=== PATIENT | male | born 1985 | race Caucasian/White ===

== ENCOUNTER 2017-06-09 16:53 | Observation (INO) | payer OTHER ==
[~2017-06-09] VITALS: Ht 190.5 cm; Wt 112.0 kg
--- NOTE | 2017-06-09 17:06 | EMERGENCY ROOM VISIT NOTE ---
History Report prepared by Eduin: Maryan Valera Under the Supervision of: Dr. Antolin Cartwright D.O. First contact with patient: 16:53 Stated Complaint: CHEST PAIN History of Present Illness The patient is a 32 year old male who presents to the Emergency Room with complaints of chest pain beginning at 1000 this morning. The patient rates his pain at a 7/10. He also reports that the pain radiates to his lower back. The patient states that the pain is exacerbated with movement and taking a deep breath. The patient states that his grandfather from a heart attack and his father has blood clots. The patient states that he was never tested for factor 5. Per EMS, the patient was anxious and diaphoretic upon arrival. Per EMS , the patient has pain when his chest is pushed on. Per EMS, the patient also had tingling in his right arm. Per EMS, the patient was give aspirin, 3 nitroglycerin, 100mg of fentanyl, and 4mg of Zofran en route. The patient reports that he drinks occasionally but does not smoke. The patient states that he used to chew tobacco but that he quit. He reports that he does not take any medications daily and reports that he has never had surgery. Source of History: patient, EMS Onset: 1000 this morning Position: chest Symptom Intensity: rated at a 7/10 Quality: other (pain ) Modifying Factors (Worsening): breathing, movement Associated Symptoms: + diaphoresis Note: additional symptoms: lower back pain, tinging in his right arm Review of Systems See HPI for pertinent positives & negatives. A total of 10 systems reviewed and were otherwise negative. Past Medical & Surgical Medical Problems: (1) No significant medical problems Family History Blood clots FH: heart attack Social History Smoking Status: Never Smoker Smokeless Tobacco Use: No Alcohol Use: occasionally Drug Use: none Marital Status: in relationship Occupation Status: employed Current/Historical Medications No Active Prescriptions or Reported Meds Allergies Coded Allergies: No Known Allergies (Unverified , 06/11/11) Physical Exam Vital Signs Date Time Temp Pulse Resp B/P (MAP) Pulse Ox O2 Delivery O2 Flow Rate FiO2 06/09/17 20:00 45 15 132/74 97 06/09/17 18:42 51 18 102/61 97 Room Air 06/09/17 18:31 50 06/09/17 17:46 56 18 111/64 98 Room Air 06/09/17 17:06 36.8 73 18 131/73 99 Room Air 06/09/17 17:06 98 Room Air 06/09/17 17:05 63 06/09/17 17:00 98 Room Air Physical Exam GENERAL: Patient is awake, alert, anxious, and uncomfortable appearing. EYES: The conjunctivae are clear. The pupils are round and reactive. EARS, NOSE, MOUTH AND THROAT: The nose is without any evidence of any deformity. Mucous membranes are moist tongue is midline NECK: The neck is nontender and supple. RESPIRATORY: Normal respiratory effort is noted there is no evidence of wheezing rhonchi or rales CARDIOVASCULAR: Regular rate and rhythm noted there no murmurs rubs or gallops normal S1 normal S2 GASTROINTESTINAL: The abdomen is soft and mildly distended. Bowel sounds are present in all quadrants. There is left upper quadrant tenderness. No rebound or guarding. PELVIS: The Pelvis is stable. No tenderness to palpation is noted. BACK: No step-off noted range of motion in flexion extension as well as rotation no signs of muscle spasm noted. Left CVA tenderness to percussion. Mild midline tenderness to percussion. Range of motion is intact. MUSCULOSKELETAL/EXTREMITIES: There is no evidence of gross deformity full range of motion is noted in the hips and shoulders SKIN: There is no obvious evidence of any rash. There are no petechiae, pallor or cyanosis noted. NEUROLOGIC: Patient is awake alert and oriented x3 Medical Decision & Procedures ER Provider Diagnostic Interpretation: Radiology results as stated below per my review and radiologist interpretation: SINGLE VIEW CHEST CLINICAL HISTORY: Dyspnea. FINDINGS: An AP, portable, upright chest radiograph is compared to study dated 09/11/2013. The examination is degraded by portable technique and patient rotation. The heart is top normal for projection. The lungs and pleural spaces are clear. No pneumothorax is seen. The bony thorax is grossly intact. IMPRESSION: No acute cardiopulmonary abnormality. Electronically signed by: Oscar Lopez M.D. 06/09/2017 5:09 PM Dictated Date/Time: 06/09/2017 5:08 PM ABD/PELVIS NO IV OR ORAL CONT CLINICAL HISTORY: 32 years-old Male presenting with left flank pain. TECHNIQUE: Multidetector CT of the abdomen and pelvis was performed without the use of intravenous contrast. IV contrast: None. A dose lowering technique was used consistent with the principles of ALARA (as low as reasonably achievable). COMPARISON: None. CT DOSE (mGy.cm): The estimated cumulative dose is 979.90 mGy.cm. FINDINGS: Desk Clerks Supervisor topogram: Unremarkable. Lung bases: Minimal basilar opacities, likely atelectasis. Normal heart size. No pericardial or pleural effusion. Liver: Normal morphology. Density consistent with hepatic steatosis. Biliary: No gross biliary ductal dilatation allowing for noncontrast technique. Normal gallbladder. Pancreas: Normal noncontrast appearance. Spleen: Normal noncontrast appearance. Adrenal glands: Normal noncontrast appearance. Kidneys and ureters: Normal noncontrast appearance. No nephrolithiasis. No hydronephrosis. Normal ureters. Bladder: Normal. Pelvic organs: Prostate and seminal vesicles normal. Bowel: Normal appendix. No bowel obstruction. Local infiltration of fat anterior to the sigmoid colon (series 3 image 394). Colon is normal. Peritoneal cavity: No free fluid or intraperitoneal gas. Lymph nodes: No gross lymphadenopathy allowing for noncontrast technique. Vasculature: Normal noncontrast appearance. Abdominal wall: Small fat-containing umbilical hernia. Musculoskeletal: Normal. IMPRESSION: 1. Findings consistent with epiploic appendagitis of the sigmoid colon. No other evidence of acute intra-abdominal pathology. Electronically signed by: Israel Gerard M.D. 06/09/2017 5:51 PM Dictated Date/Time: 06/09/2017 5:47 PM Laboratory Results Test 06/09/17 16:30 06/09/17 17:00 06/09/17 17:02 06/09/17 19:32 Immature Granulocyte % (Auto) 0.1 % White Blood Count 7.04 K/uL (4.8-10.8) Red Blood Count 4.80 M/uL (4.7-6.1) Hemoglobin 14.8 g/dL (14.0-18.0) Hematocrit 43.0 % (42-52) Mean Corpuscular Volume 89.6 fL (80-100) Mean Corpuscular Hemoglobin 30.8 pg (25-34) Mean Corpuscular Hemoglobin Concent 34.4 g/dl (32-36) Platelet Count 287 K/uL (130-400) Mean Platelet Volume 10.2 fL (7.4-10.4) Neutrophils (%) (Auto) 64.1 % Lymphocytes (%) (Auto) 27.4 % Monocytes (%) (Auto) 5.7 % Eosinophils (%) (Auto) 2.4 % Basophils (%) (Auto) 0.3 % Neutrophils # (Auto) 4.51 K/uL (1.4-6.5) Lymphocytes # (Auto) 1.93 K/uL (1.2-3.4) Monocytes # (Auto) 0.40 K/uL (0.11-0.59) Eosinophils # (Auto) 0.17 K/uL (0-0.5) Basophils # (Auto) 0.02 K/uL (0-0.2) Immature Granulocyte # (Auto) 0.01 K/uL (0.00-0.02) Prothrombin Time 10.8 SECONDS (9.0-12.0) Prothromb Time International Ratio 1.0 (0.9-1.1) Activated Partial Thromboplast Time 24.7 SECONDS (21.0-31.0) Partial Thromboplastin Ratio 1.0 Magnesium Level 2.1 mg/dl (1.8-2.4) Total Bilirubin 0.6 mg/dl (0.2-1) Aspartate Amino Transf (AST/SGOT) 18 U/L (15-37) Alanine Aminotransferase (ALT/SGPT) 41 U/L (12-78) Alkaline Phosphatase 64 U/L (45-117) Total Creatine Kinase 115 U/L (39-308) Creatine Kinase MB < 0.5 ng/ml (0.5-3.6) Creatine Kinase MB Ratio (0-3.0) Total Protein 7.6 gm/dl (6.4-8.2) Albumin 3.9 gm/dl (3.4-5.0) Globulin 3.7 gm/dl (2.5-4.0) Albumin/Globulin Ratio 1.1 (0.9-2) Thyroid Stimulating Hormone (TSH) 1.090 uIu/ml (0.300-4.500) Free Thyroxine 0.97 ng/dl (0.80-1.60) Lyme Disease IgG Antibody NEG (NEG) Lyme Disease IgM Antibody NEG (NEG) Bedside D-Dimer 163 ng/mlFEU (0-450) Bedside Hemoglobin 13.9 g/dl (14.0-18.0) Bedside Hematocrit 41 % (42-52) Bedside Sodium 143 mEq/L (135-144) Bedside Potassium 3.5 mEq/L (3.3-5.0) Bedside Chloride 104 mEq/L (101-112) Bedside Total CO2 24 mEq/l (24-31) Bedside Blood Urea Nitrogen 19 mg/dl (7-18) Bedside Creatinine 1.0 mg/dl (0.6-1.3) Bedside Glucose (other) 80 mg/dl (70-99) Bedside Ionized Calcium (Naida) 1.15 mmol/l (1.12-1.32) Bedside Troponin I < 0.030 ng/ml (0-0.045) Laboratory results per my review. Medications Administered Medications (Trade) Dose Ordered Sig/Sari Route Start Time Stop Time Status Last Admin Dose Admin Morphine Sulfate (MoRPHine SULFATE INJ) 4 mg Q15M PRN IV 06/09/17 17:00 06/09/17 22:04 DC 06/09/17 17:55 4 MG ECG Per My Interpretation Indication: chest pain Rate (beats per minute): 67 Rhythm: normal sinus Findings: PVC (frequent), RBBB (suggested), ST depression (Anterior), T-wave inversion Comparison ECG Date: changes similar to 09/11/13 Change: repeat ECG: sinus bradycardia, rate of 59, no ectopy, anterior ST depression, T- wave inversions, no significant change from earlier ED Course 1644: I spoke to Dr. Jaquan Willoughby Real Estate Assistant regarding the patient's case. 1653: The patient was evaluated in room B1. A complete history and physical examination were performed. 1700: Ordered Morphine Sulfate 4 mg IV. 1710: I checked on the patient and talked to Dr. Willoughby. 1749: I checked on the patient and updated him. 1900: Upon reevaluation, the patient is resting. I discussed results and treatment plan with him. He verbalizes agreement and understanding. I spoke with Ann AG of the [facility]. The patient will be evaluated for further management and care. Medical Decision Differential diagnosis: Etiologies such as cardiac ischemia, aortic dissection, pulmonary embolism, pneumonia, pneumothorax, musculoskeletal, infections, pericarditis, myocarditis , esophageal rupture, gastrointestinal, as well as others were entertained. Nursing notes reviewed. Additional history is obtained from the prehospital personnel. The patient is a 32-year-old male who presented to the emergency department for an evaluation of chest discomfort. The patient was brought to the emergency department by ambulance. I was notified by the prehospital personnel for possible abnormal EKG. The patient was very diaphoretic and the prehospital personnel felt that the patient may be having an acute coronary syndrome. The patient's EKG appears similar to previous. He was treated with aspirin and nitroglycerin and pain medication prior to arrival. He was further treated with pain medication. The patient's d-dimer is negative. Initial troponin was negative as well. I discussed patient's case with the on-call deli department manager. He evaluated the patient once he arrived. He recommended further workup but agrees that the patient does not appear to be a candidate for the Detonator Assembler at this time and I agree with this assessment. The patient was reevaluated multiple times. I discussed patient's laboratory and radiographic studies with him. I also discussed the limitations of the emergency department workup for chest pain with him. Because of his symptoms I discussed his case with the on-call [facility] hospitalist group. They have agreed to evaluate the patient in the emergency department for further management and disposition per Medication Reconcilliation Current Medication List: was personally reviewed by me Blood Pressure Screening Patient's blood pressure: Normal blood pressure Consults Time Called: 1643 Consulting Physician: Dr. Willoughby- Cardiology Returned Call: 1643 I discussed the patient's case with Dr. Willoughby. Additional Consults: Time Called: 182 Consulted Physician: Ann AG Returned Call: 1900 Additional Comments: I discussed the patient's case with Ann AG. The patient will be evaluated for further management. Impression Primary Impression: Chest pain Additional Impression: Abnormal ECG Scribe Attestation The scribe's documentation has been prepared under my direction and personally reviewed by me in its entirety. I confirm that the note above accurately reflects all work, treatment, procedures, and medical decision making performed by me. Departure Information Dispostion Being Evaluated By Hospitalist Prescriptions No Active Prescriptions or Reported Meds Problem Qualifiers Primary Impression: Chest pain Chest pain type: unspecified Qualified Codes: R07.9 - Chest pain, unspecified
[2017-06-09 17:10] LABS: BASO % 0.3 %; BASO ABS # 0.02 K/uL (0-0.2); EOS % 2.4 %; EOS ABS # 0.17 K/uL (0-0.5); HEMOGLOBIN 14.8 g/dL (14.0-18.0); IG# 0.01 K/uL (0.00-0.02); LYMPH % 27.4 %; LYMPH ABS # 1.93 K/uL (1.2-3.4); MEAN CELL VOLUME 89.6 fL (80-100); MEAN CORPUSCULAR HEMOGLOBIN 30.8 pg (25-34); MEAN CORPUSCULAR HGB CONC 34.4 g/dl (32-36); MEAN PLATELET VOLUME 10.2 fL (7.4-10.4); MONO % 5.7 %; NEUT % 64.1 %; NEUT ABS # 4.51 K/uL (1.4-6.5); PLATELET COUNT 287 K/uL (130-400); RED CELL DISTRIBUTION WIDTH CV 12.8 % (11.5-14.5); RED CELL DISTRIBUTION WIDTH SD 41.5 fL (36.4-46.3); WHITE BLOOD COUNT 7.04 K/uL (4.8-10.8)
--- NOTE | 2017-06-09 17:10 | DIAGNOSTIC IMAGING REPORT ---
SINGLE VIEW CHEST CLINICAL HISTORY: Dyspnea. FINDINGS: An AP, portable, upright chest radiograph is compared to study dated 09/11/2013. The examination is degraded by portable technique and patient rotation. The heart is top normal for projection. The lungs and pleural spaces are clear. No pneumothorax is seen. The bony thorax is grossly intact. IMPRESSION: No acute cardiopulmonary abnormality. Electronically signed by: Oscar Lopez M.D. 06/09/2017 5:09 PM Dictated Date/Time: 06/09/2017 5:08 PM
[2017-06-09 17:16] LABS: ISTAT IONIZED CALCIUM 1.15 mmol/l (1.12-1.32); ISTAT POTASSIUM 3.5 mEq/L (3.3-5.0)
[2017-06-09] MEDS: MoRPHine SULFATE 4 MG/ML 1 ML CARP\\VIAL IV PRN ×2 (17:22→17:55)
[2017-06-09 17:23] LABS: PTT PATIENT 24.7 SECONDS (21.0-31.0)
[2017-06-09 17:28] LABS: ALBUMIN 3.9 gm/dl (3.4-5.0); ALT/SGPT 41 U/L (12-78); BLOOD UREA NITROGEN 17 mg/dl (7-18); CARBON DIOXIDE 24 mmol/L (21-32); CREATININE 1.18 mg/dl (0.60-1.40); GLUCOSE 96 mg/dl (70-99); POTASSIUM 3.3 mmol/L (3.5-5.1); SODIUM 139 mmol/L (136-145)
[2017-06-09 17:33] LABS: ALKALINE PHOSPHATASE 64 U/L (45-117); AST/SGOT 18 U/L (15-37); CKMB < 0.5 ng/ml (0.5-3.6); TOTAL PROTEIN 7.6 gm/dl (6.4-8.2)
--- NOTE | 2017-06-09 17:53 | DIAGNOSTIC IMAGING REPORT ---
ABD/PELVIS NO IV OR ORAL CONT CLINICAL HISTORY: 32 years-old Male presenting with left flank pain. TECHNIQUE: Multidetector CT of the abdomen and pelvis was performed without the use of intravenous contrast. IV contrast: None. A dose lowering technique was used consistent with the principles of ALARA (as low as reasonably achievable). COMPARISON: None. CT DOSE (mGy.cm): The estimated cumulative dose is 979.90 mGy.cm. FINDINGS: Flat Bed Knitter topogram: Unremarkable. Lung bases: Minimal basilar opacities, likely atelectasis. Normal heart size. No pericardial or pleural effusion. Liver: Normal morphology. Density consistent with hepatic steatosis. Biliary: No gross biliary ductal dilatation allowing for noncontrast technique. Normal gallbladder. Pancreas: Normal noncontrast appearance. Spleen: Normal noncontrast appearance. Adrenal glands: Normal noncontrast appearance. Kidneys and ureters: Normal noncontrast appearance. No nephrolithiasis. No hydronephrosis. Normal ureters. Bladder: Normal. Pelvic organs: Prostate and seminal vesicles normal. Bowel: Normal appendix. No bowel obstruction. Local infiltration of fat anterior to the sigmoid colon (series 3 image 394). Colon is normal. Peritoneal cavity: No free fluid or intraperitoneal gas. Lymph nodes: No gross lymphadenopathy allowing for noncontrast technique. Vasculature: Normal noncontrast appearance. Abdominal wall: Small fat-containing umbilical hernia. Musculoskeletal: Normal. IMPRESSION: 1. Findings consistent with epiploic appendagitis of the sigmoid colon. No other evidence of acute intra-abdominal pathology. Electronically signed by: Israel Gerard M.D. 06/09/2017 5:51 PM Dictated Date/Time: 06/09/2017 5:47 PM
[2017-06-09] MEDS ORDERED: OPTIRAY 320 IV PRN (20:45)
[2017-06-09] MEDS ORDERED: ONDANSETRON INJ 2 MG/ML 2 ML VIAL IV PRN (20:45)
[2017-06-09] MEDS ORDERED: NITROGLYCERIN 0.4 MG SL PER TAB CHARGE SL PRN (20:45)
[2017-06-09] MEDS ORDERED: POTASSIUM CHLORIDE 20 MEQ TABCR PO STA (20:48)
[2017-06-09 20:55] VITALS: O2SAT 97; Ht 190.5 cm; Wt 112.0 kg
--- NOTE | 2017-06-09 21:06 | History and Physical ---
History & Physical Date & Time of Service: Jun 09, 2017 ~ 2014 Chief Complaint: Chest Pain Primary Care Physician: No Doctor, Assigned History of Present Illness 32-year-old male who presents to the ER with chest pain. Patient reports that he woke up this morning he had chest pain. He describes the pain as midsternal radiating over to the left side of his chest into his left arm and up into his jaw. Patient reports occasional episodes of chest pain in the past. However not as severe as today. Patient went to work where his symptoms progressively got worse. He also developed associated shortness of breath and diaphoresis. Patient rates the pain as a #9/10 at its worst. No associated lightheadedness, dizziness, or syncopal events. He denies associated nausea. EMS was called and transport patient to the hospital. In route patient received aspirin and nitroglycerin. Patient reports some relief in the pain after the nitroglycerin. Patient reports he otherwise has been feeling well recently. He has been under a large amount of stress due to his job and upcoming wedding. No abdominal pain, vomiting, or diarrhea. He denies fever and chills. No urinary symptoms. In the ED patient has negative troponins 2. EKG shows T- wave inversions in the anterior leads. These are present on EKG from 2014. He received IV morphine with moderate improvement in the pain. CT ABD/pelvis is negative for acute findings. Labs are unremarkable. Dr. Willoughby from interventional cardiology evaluated the patient at the bedside who recommended observation overnight. Past Medical/Surgical History Medical Problems: (1) No significant medical problems Social History Smoking Status: Never Smoker Alcohol Use: occasionally Allergies Coded Allergies: No Known Allergies (Unverified , 06/11/11) Home Medications No Active Prescriptions or Reported Meds Review of Systems ROS per HPI, all other systems reviewed and negative Physical Exam Vital Signs Date Time Temp Pulse Resp B/P (MAP) Pulse Ox O2 Delivery O2 Flow Rate FiO2 06/09/17 18:42 51 18 102/61 97 Room Air 06/09/17 18:31 50 06/09/17 17:46 56 18 111/64 98 Room Air 06/09/17 17:06 36.8 73 18 131/73 99 Room Air 06/09/17 17:06 98 Room Air 06/09/17 17:05 63 06/09/17 17:00 98 Room Air General Appearance: WD/WN, no apparent distress Head: normocephalic, atraumatic Eyes: normal inspection, EOMI, sclerae normal ENT: hearing grossly normal, + pertinent finding (Mucous membranes moist) Neck: supple, no JVD, no carotid bruits Respiratory/Chest: lungs clear, normal breath sounds, no respiratory distress, + pertinent finding (Left anterior chest wall tender to palpation) Cardiovascular: regular rate, rhythm, no edema, normal peripheral pulses Abdomen/GI: normal bowel sounds, non tender, soft, no organomegaly Extremities/Musculoskelatal: normal inspection, no calf tenderness, normal capillary refill Neurologic/Psych: no motor/sensory deficits, alert, normal mood/affect, oriented x 3 Skin: normal color, warm/dry Diagnostics Laboratory Results Results Past 24 Hours Test 06/09/17 16:30 06/09/17 17:02 06/09/17 19:32 Range/Units White Blood Count 7.04 4.8-10.8 K/uL Red Blood Count 4.80 4.7-6.1 M/uL Hemoglobin 14.8 14.0-18.0 g/dL Hematocrit 43.0 42-52 % Mean Corpuscular Volume 89.6 80-100 fL Mean Corpuscular Hemoglobin 30.8 25-34 pg Mean Corpuscular Hemoglobin Concent 34.4 32-36 g/dl Platelet Count 287 130-400 K/uL Mean Platelet Volume 10.2 7.4-10.4 fL Neutrophils (%) (Auto) 64.1 % Lymphocytes (%) (Auto) 27.4 % Monocytes (%) (Auto) 5.7 % Eosinophils (%) (Auto) 2.4 % Basophils (%) (Auto) 0.3 % Neutrophils # (Auto) 4.51 1.4-6.5 K/uL Lymphocytes # (Auto) 1.93 1.2-3.4 K/uL Monocytes # (Auto) 0.40 0.11-0.59 K/uL Eosinophils # (Auto) 0.17 0-0.5 K/uL Basophils # (Auto) 0.02 0-0.2 K/uL RDW Standard Deviation 41.5 36.4-46.3 fL RDW Coefficient of Variation 12.8 11.5-14.5 % Immature Granulocyte % (Auto) 0.1 % Immature Granulocyte # (Auto) 0.01 0.00-0.02 K/uL Prothrombin Time 10.8 9.0-12.0 SECONDS Prothromb Time International Ratio 1.0 0.9-1.1 Activated Partial Thromboplast Time 24.7 21.0-31.0 SECONDS Partial Thromboplastin Ratio 1.0 Sodium Level 139 136-145 mmol/L Potassium Level 3.3 3.5-5.1 mmol/L Chloride Level 106 98-107 mmol/L Carbon Dioxide Level 24 21-32 mmol/L Anion Gap 9.0 19.0 16-25 mmol/L Blood Urea Nitrogen 17 7-18 mg/dl Creatinine 1.18 0.60-1.40 mg/dl Est Creatinine Clear Calc Drug Dose 119.2 ml/min Estimated GFR () 92.8 Estimated GFR (Non- 80.0 BUN/Creatinine Ratio 14.7 10-20 Random Glucose 96 70-99 mg/dl Calcium Level 9.0 8.5-10.1 mg/dl Magnesium Level 2.1 1.8-2.4 mg/dl Total Bilirubin 0.6 0.2-1 mg/dl Aspartate Amino Transf (AST/SGOT) 18 15-37 U/L Alanine Aminotransferase (ALT/SGPT) 41 12-78 U/L Alkaline Phosphatase 64 45-117 U/L Total Creatine Kinase 115 39-308 U/L Creatine Kinase MB < 0.5 0.5-3.6 ng/ml Creatine Kinase MB Ratio 0-3.0 Troponin I < 0.015 0-0.045 ng/ml Total Protein 7.6 6.4-8.2 gm/dl Albumin 3.9 3.4-5.0 gm/dl Globulin 3.7 2.5-4.0 gm/dl Albumin/Globulin Ratio 1.1 0.9-2 Thyroid Stimulating Hormone (TSH) 1.090 0.300-4.500 uIu/ml Free Thyroxine 0.97 0.80-1.60 ng/dl Bedside Hemoglobin 13.9 14.0-18.0 g/dl Bedside Hematocrit 41 42-52 % Bedside Sodium 143 135-144 mEq/L Bedside Potassium 3.5 3.3-5.0 mEq/L Bedside Chloride 104 101-112 mEq/L Bedside Total CO2 24 24-31 mEq/l Bedside Blood Urea Nitrogen 19 7-18 mg/dl Bedside Creatinine 1.0 0.6-1.3 mg/dl Bedside Glucose (other) 80 70-99 mg/dl Bedside Ionized Calcium (Naida) 1.15 1.12-1.32 mmol/l Bedside Troponin I < 0.030 0-0.045 ng/ml Diagnostic Radiology CXR IMPRESSION: No acute cardiopulmonary abnormality. CT ABD/PELVIS IMPRESSION: 1. Findings consistent with epiploic appendagitis of the sigmoid colon. No other evidence of acute intra-abdominal pathology. Impression Assessment and Plan CHEST PAIN -Admit to telemetry -Patient presenting with midsternal chest pain with radiation into the left arm and jaw with associated diaphoresis and shortness of breath; received nitroglycerin in route with EMS and had minimal relief, received IV morphine in the ED with moderate relief -Troponins negative 2, EKG shows T-wave inversions in the anterior leads which were present from EKG in 2014 however today's EKG shows less than [address] depression in the anterior leads -Dr. Willoughby from interventional cardiology evaluated the patient in the ED who recommends observation overnight -Will obtain CTA chest to r/o dissection -Possible musculoskeletal etiology since pain is reproducible with palpation -Continue to cycle cardiac enzymes, resting echo -S/P aspirin with EMS, will continue with 81 mg daily -Check lipid panel in the morning DVT PROPHYLAXIS -SQ Lovenox DISPO -The patient will be placed as observation status for now until further work up is complete. Attending addendum; The patient was seen and examined in the ER. Admitted with left-sided chest pain started at work with radiation to left arm neck and back and associated with mild shortness of breath and sweating. History of similar chest pain in 2013. He received nitroglycerin on the way to the hospital and the pain is relieved. No significant risk factors for heart disease. On examination: No apparent distress, hemodynamically stable. Chest-clear to auscultate bilaterally. Heart-regular, no murmur appreciated. Abdomen-benign, no organomegaly, bowel sounds present Extremities-no edema. His admission labs EKG chest x-ray and CTA reviewed and noted unremarkable. Admitted with assessment and plan. Was seen by Dr. Willoughby the rehab therapy manager in ER and will have follow-up Dr. Georges HURD. Resuscitation Status VTE Prophylaxis Will order VTE Prophylaxis: Yes
[2017-06-09 21:32] VITALS: O2SAT 97
[2017-06-09] MEDS ORDERED: IV FLUIDS COMPLETED PRN (21:45)
--- NOTE | 2017-06-09 21:58 | DIAGNOSTIC IMAGING REPORT ---
CHEST COMBO ANGIO DISSECTION CLINICAL HISTORY: 32 years-old Male presenting with ^chest pain. TECHNIQUE: Multidetector CT angiography of the chest was performed before and after the administration of intravenous contrast. 3-D volumetric and/or maximum intensity projection (MIP) images were subsequently reconstructed for review. IV contrast: 117 mL of Optiray 320. A dose lowering technique was used consistent with the principles of ALARA (as low as reasonably achievable). COMPARISON: None. CT DOSE (mGy.cm): The estimated cumulative dose is 1142.79 mGy.cm. FINDINGS: Quantitative Research Analyst topogram: Unremarkable. Vasculature: The study is adequate for assessment of the aorta. Precontrast imaging demonstrates no evidence of intramural hematoma. Postcontrast imaging demonstrates no evidence of dissection, penetrating ulcer, or aneurysm. Allowing for timing of the contrast bolus, no gross evidence of a filling defect within the pulmonary arteries to suggest embolus. Main pulmonary artery is not enlarged. No flattening of the interventricular septum. No intracardiac filling defect. No reflux of contrast into the hepatic veins. Remaining chest: On soft tissue windows, normal thyroid and thoracic inlet. No axillary, supraclavicular, hilar, or mediastinal lymphadenopathy. Normal heart size. No pericardial or pleural effusion. Hepatic steatosis. On lung windows, minimal dependent changes likely atelectasis. No other focal nodule or infiltrate. Airways patent. On bone windows, normal osseous structures. IMPRESSION: 1. No evidence of acute aortic injury. No acute intrathoracic pathology. 2. Hepatic steatosis. Electronically signed by: Israel Gerard M.D. 06/09/2017 9:57 PM Dictated Date/Time: 06/09/2017 9:53 PM
[2017-06-09 22:00] VITALS: BP 129/79; PULSE 66; TEMP 37.1; O2SAT 99
[2017-06-09] MEDS: ACETAMINOPHEN 325 MG TAB PO PRN (22:08)
[2017-06-10 00:09] VITALS: BP 96/58; PULSE 47; TEMP 36.6; O2SAT 98
[2017-06-10 04:05] VITALS: BP 118/76; PULSE 52; TEMP 36.3; O2SAT 98
[2017-06-10 06:09] LABS: HEMATOCRIT 41.8 % (42-52); HEMOGLOBIN 13.2 g/dL (14.0-18.0); MEAN CELL VOLUME 91.1 fL (80-100); MEAN CORPUSCULAR HEMOGLOBIN 28.8 pg (25-34); MEAN CORPUSCULAR HGB CONC 31.6 g/dl (32-36); MEAN PLATELET VOLUME 9.7 fL (7.4-10.4); PLATELET COUNT 249 K/uL (130-400); WHITE BLOOD COUNT 6.57 K/uL (4.8-10.8)
[2017-06-10 06:40] LABS: CALCIUM 8.1 mg/dl (8.5-10.1); CREATININE 0.95 mg/dl (0.60-1.40)
[2017-06-10] MEDS: ACETAMINOPHEN 325 MG TAB PO PRN (06:59)
[2017-06-10 07:03] VITALS: BP 115/73; TEMP 36.6; O2SAT 100
[2017-06-10] MEDS ORDERED: ASPIRIN 81 MG ECTAB PO SCH (09:00)
[2017-06-10] MEDS ORDERED: ENOXAPARIN 40 MG/0.4 ML SYR SC SCH (09:00)
[2017-06-10 11:15] VITALS: BP 116/73; PULSE 79; TEMP 36.5; O2SAT 94
--- NOTE | 2017-06-10 11:53 | Discharge Instructions ---
Discharge Instructions Date of Service Jun 10, 2017. Admission Reason for Admission: Chest Pain Discharge Discharge Diagnosis / Problem: CHEST PAIN /NON CARDIAC -NEGATIVE STRESS TEST Discharge Goals Goal(s): Decrease discomfort, Improve disease control, Diagnostic testing, Therapeutic intervention Activity Recommendations Activity Limitations: resume your previous activity . Instructions / Follow-Up Instructions / Follow-Up FOLLOW UP WITH FAMILY PHYSICIAN IN A WEEK Current Hospital Diet Patient's current hospital diet: AHA Diet (Heart Healthy) Discharge Diet Recommended Diet: Regular Diet Pending Studies Studies pending at discharge: no Laboratory Results Lipid Panel Test 06/10/17 05:57 Range/Units Triglycerides Level 176 H 0-150 mg/dl Cholesterol Level 143 0-200 mg/dl HDL Cholesterol 33 mg/dl Cholesterol/HDL Ratio 4.3 LDL Cholesterol, Calculated 75 mg/dl Medical Emergencies . Who to Call and When: Medical Emergencies: If at any time you feel your situation is an emergency, please call 911 immediately. . Non-Emergent Contact Non-Emergency issues call your: Primary Care Provider . . "Provider Documentation" section prepared by Rima Timmons. .
--- NOTE | 2017-06-10 12:12 | DOBUTAMINE ECHO ---
*NOTICE TO RECEIVING LIBERTARIAN AGENCY This information is strictly Confidential and protected under [place] law. [place] law prohibits you from making any further disclosure of this information unless further disclosure is expressly permitted by the written consent of the person to whom it pertains or is authorized by law. A general authorization for the release of medical or other information is not sufficient for this purpose. Hospital accepts no responsibility if the information is made available to any other person, INCLUDING THE PATIENT. Interpretation Summary * Name: DEVORAH SOLIS IV Study Date: 06/10/2017 09:58 AM BP: 115/72 mmHg * Patient Location: .2T\S\S238\S\2 HR: 58 * : 1985 (M/d/yyyy) Gender: Male Height: 75 in * Age: 32 yrs Ethnicity: [place] Weight: 246 lb * Ordering Physician: Errol Willoughby * Referring Physician: Self, Referred * Performed By: Alice Amezcua RDCS * * Reason For Study: Chest pain * BSA: 2.4 m2 * -- Conclusions -- * 1. Normal stress echocardiogram at 10.1 METS and peak heart of 88% predicted maximum. * 2. No exercise-induced chest pain. * 3. No EKG changes. * 4. Baseline echocardiogram notes normal left ventricular systolic function without wall motion abnormalities. Procedure Details * ECHOEX, CPT #34043 Left Ventricle * The left ventricle is normal in size. * There is normal left ventricular wall thickness. * Left ventricular systolic function is normal. * Resting wall motion: Normal. Stress wall motion: Appropriate increase in Left ventricular systolic function and decrease in cavity size. No stress induced segmental wall motion abnormalities. Stress Parameters * The stress portion of this study was personally supervised by the undersigned interpreting physician. * Rest heart rate was '58' BPM. * Rest blood pressure was '115/72' * Maximum heart rate achieved was 164 bpm. * Maximum heart rate was 88 % of maximum age-predicted heart rate. * Maximum blood pressure was '166/64' * Total exercise time was '8:26' * Maximum exercise MET level achieved was '10.10' METS * Maximum treadmill speed was '3.40' miles per hour. * Maximum treadmill elevation was '14.00'% grade. * Exercise was terminated due to 'achieving target heart rate'
--- NOTE | 2017-06-10 12:33 | Discharge Summary ---
Discharge Summary Date of Service Jun 10, 2017. Discharge Summary Admission Date: Jun 09, 2017 at 20:41 Discharge Date: Jun 10, 2017 Discharge Disposition: Home Principal Diagnosis: CHEST PAIN /NON CARDIAC -NEGATIVE STRESS TEST Procedures: Cardiac stress test: Negative for stress-induced ischemia Medication Reconciliation Medication Profile: No Active Prescriptions or Reported Meds Admission Information HPI (per Admitting provider): 32-year-old male who presents to the ER with chest pain. Patient reports that he woke up this morning he had chest pain. He describes the pain as midsternal radiating over to the left side of his chest into his left arm and up into his jaw. Patient reports occasional episodes of chest pain in the past. However not as severe as today. Patient went to work where his symptoms progressively got worse. He also developed associated shortness of breath and diaphoresis. Patient rates the pain as a #9/10 at its worst. No associated lightheadedness, dizziness, or syncopal events. He denies associated nausea. EMS was called and transport patient to the hospital. In route patient received aspirin and nitroglycerin. Patient reports some relief in the pain after the nitroglycerin. Patient reports he otherwise has been feeling well recently. He has been under a large amount of stress due to his job and upcoming wedding. No abdominal pain, vomiting, or diarrhea. He denies fever and chills. No urinary symptoms. In the ED patient has negative troponins 2. EKG shows T- wave inversions in the anterior leads. These are present on EKG from 2014. He received IV morphine with moderate improvement in the pain. CT ABD/pelvis is negative for acute findings. Labs are unremarkable. Dr. Willoughby from interventional cardiology evaluated the patient at the bedside who recommended observation overnight. Physical Exam (per Admitting): General Appearance: WD/WN, no apparent distress Head: normocephalic, atraumatic Eyes: normal inspection, EOMI, sclerae normal ENT: hearing grossly normal, + pertinent finding (Mucous membranes moist) Neck: supple, no JVD, no carotid bruits Respiratory/Chest: lungs clear, normal breath sounds, no respiratory distress, + pertinent finding (Left anterior chest wall tender to palpation) Cardiovascular: regular rate, rhythm, no edema, normal peripheral pulses Abdomen/GI: normal bowel sounds, non tender, soft, no organomegaly Extremities/Musculoskelatal: normal inspection, no calf tenderness, normal capillary refill Neurologic/Psych: no motor/sensory deficits, alert, normal mood/affect, oriented x 3 Skin: normal color, warm/dry Hospital Course No complaint of chest pain shortness of breath or discomfort Feels fine Cardiac stress stress test today-negative for stress-induced ischemia Did not had any angina or chest discomfort with exercise stress test Return to floor Diet resumed Stable to be discharged home No further workup needed Discharge Instructions Discharge Instructions Date of Service Jun 10, 2017. Admission Reason for Admission: Chest Pain Discharge Discharge Diagnosis / Problem: CHEST PAIN /NON CARDIAC -NEGATIVE STRESS TEST Discharge Goals Goal(s): Decrease discomfort, Improve disease control, Diagnostic testing, Therapeutic intervention Activity Recommendations Activity Limitations: resume your previous activity . Instructions / Follow-Up Instructions / Follow-Up FOLLOW UP WITH FAMILY PHYSICIAN IN A WEEK Current Hospital Diet Patient's current hospital diet: AHA Diet (Heart Healthy) Discharge Diet Recommended Diet: Regular Diet Pending Studies Studies pending at discharge: no Laboratory Results Lipid Panel Test 06/10/17 05:57 Range/Units Triglycerides Level 176 H 0-150 mg/dl Cholesterol Level 143 0-200 mg/dl HDL Cholesterol 33 mg/dl Cholesterol/HDL Ratio 4.3 LDL Cholesterol, Calculated 75 mg/dl Medical Emergencies . Who to Call and When: Medical Emergencies: If at any time you feel your situation is an emergency, please call 911 immediately. . Non-Emergent Contact Non-Emergency issues call your: Primary Care Provider . . "Provider Documentation" section prepared by Rima Timmons. .
[2017-06-10 13:41] VITALS: BP 116/73; PULSE 79; TEMP 36.5; O2SAT 94
--- NOTE | 2017-06-10 14:11 | EXERCISE STRESS ECHO ---
*NOTICE TO RECEIVING LIBERTARIAN AGENCY This information is strictly Confidential and protected under [place] law. [place] law prohibits you from making any further disclosure of this information unless further disclosure is expressly permitted by the written consent of the person to whom it pertains or is authorized by law. A general authorization for the release of medical or other information is not sufficient for this purpose. Hospital accepts no responsibility if the information is made available to any other person, INCLUDING THE PATIENT. Interpretation Summary * Name: DEVORAH SOLIS IV Study Date: 06/10/2017 09:58 AM BP: 115/72 mmHg * Patient Location: .2T\S\S238\S\2 HR: 58 * : 1985 (M/d/yyyy) Gender: Male Height: 75 in * Age: 32 yrs Ethnicity: [place] Weight: 246 lb * Ordering Physician: Errol Willoughby * Referring Physician: Self, Referred * Performed By: Alice Amezcua RDCS * * Reason For Study: Chest pain * BSA: 2.4 m2 * -- Conclusions -- * 1. Normal stress echocardiogram at 10.1 METS and peak heart of 80% predicted maximum. * 2. No exercise-induced chest pain. * 3. No EKG changes. * 4. Baseline echocardiogram notes normal left ventricular systolic function without wall motion abnormalities. Procedure Details * ECHOEX, CPT #92064 Left Ventricle * The left ventricle is normal in size. * There is normal left ventricular wall thickness. * Left ventricular systolic function is normal. * Resting wall motion: Normal. Stress wall motion: Appropriate increase in Left ventricular systolic function and decrease in cavity size. No stress induced segmental wall motion abnormalities. Stress Parameters * The stress portion of this study was personally supervised by the undersigned interpreting physician. * Rest heart rate was '58' BPM. * Rest blood pressure was '115/72' * Maximum heart rate achieved was 164 bpm. * Maximum heart rate was 88 % of maximum age-predicted heart rate. * Maximum blood pressure was '166/64' * Total exercise time was '8:26' * Maximum exercise MET level achieved was '10.10' METS * Maximum treadmill speed was '3.40' miles per hour. * Maximum treadmill elevation was '14.00'% grade. * Exercise was terminated due to 'achieving target heart rate'
--- NOTE | 2017-06-10 16:00 | ECHOCARDIOGRAM REPORT ---
*NOTICE TO RECEIVING LIBERTARIAN AGENCY This information is strictly Confidential and protected under [place] law. [place] law prohibits you from making any further disclosure of this information unless further disclosure is expressly permitted by the written consent of the person to whom it pertains or is authorized by law. A general authorization for the release of medical or other information is not sufficient for this purpose. Hospital accepts no responsibility if the information is made available to any other person, INCLUDING THE PATIENT. Interpretation Summary * Name: DEVORAH SOLIS IV Study Date: 06/10/2017 06:28 AM BP: 118/76 mmHg * Patient Location: [facility] HR: 52 * : 1985 (M/d/yyyy) Gender: Male Height: 75 in * Age: 32 yrs Ethnicity: [place] Weight: 246 lb * Ordering Physician: Ann Tee * Referring Physician: Self, Referred * Performed By: Alice Amezcua RDCS * * Reason For Study: Chest pain * BSA: 2.4 m2 * -- Conclusions -- * Left ventricular systolic function is normal. * No regional wall motion abnormalities noted. * Ejection Fraction = 60-65%. * There is mild tricuspid regurgitation. Procedure Details * A complete two-dimensional transthoracic echocardiogram was performed (2D, M-mode, Doppler and color flow Doppler). Left Ventricle * The left ventricle is normal in size. * There is normal left ventricular wall thickness. * Ejection Fraction = 60-65%. * Left ventricular systolic function is normal. * No regional wall motion abnormalities noted. Right Ventricle * The right ventricle is grossly normal size. * The right ventricular systolic function is normal as assessed by tricuspid annular plane systolic excursion (TAPSE) (normal >1.5 cm). Atria * The left atrium is mildly dilated. * Right atrial size is normal. * No ASD detected; PFO is not assessed. Mitral Valve * The mitral valve anatomy is normal. * There is no mitral valve stenosis. * Significant mitral regurgitation is absent. Tricuspid Valve * The tricuspid valve anatomy is normal. * There is mild tricuspid regurgitation. Aortic Valve * The aortic valve is normal in structure and function. * Aortic stenosis is absent. * There is no significant aortic regurgitation. Pulmonic Valve * The pulmonary valve is not well seen, but the Doppler examination is normal without significant regurgitation or stenosis. Great Vessels * The aortic root is normal size. * The pulmonary is not well visualized. Pericardium/Pleural * There is no pericardial effusion. Great Vessels * Dilated inferior vena cava with reduced collapsability with sniff indicates an elevated right atrial pressure of 15 mmHg MMode 2D Measurements and Calculations IVSd 0.83 cm LVIDd 5.0 cm LVIDs 3.3 cm LVPWd 0.72 cm IVS/LVPW 1.1 FS 33.3 % EDV(Teich) 118.8 ml ESV(Teich) 45.5 ml EF(Teich) 61.7 % EDV(cubed) 125.8 ml ESV(cubed) 37.3 ml EF(cubed) 70.3 % LV mass(C)d 130.6 grams LV mass(C)dI 54.5 grams/m\S\2 SV(Teich) 73.4 ml SI(Teich) 30.6 ml/m\S\2 SV(cubed) 88.5 ml SI(cubed) 36.9 ml/m\S\2 Ao root diam 3.4 cm Ao root area 9.3 cm\S\2 ACS 2.3 cm LA dimension 3.8 cm asc Aorta Diam 2.7 cm LA/Ao 1.1 LVOT diam 2.0 cm LVOT area 3.1 cm\S\2 LVAd ap4 30.8 cm\S\2 LVLd ap4 8.4 cm EDV(MOD-sp4) 92.3 ml EDV(sp4-el) 95.3 ml LVAs ap4 18.4 cm\S\2 LVLs ap4 7.4 cm ESV(MOD-sp4) 38.4 ml ESV(sp4-el) 38.6 ml EF(MOD-sp4) 58.4 % EF(sp4-el) 59.5 % LVAd ap2 29.5 cm\S\2 LVLd ap2 8.0 cm EDV(MOD-sp2) 88.5 ml EDV(sp2-el) 92.0 ml LVAs ap2 16.5 cm\S\2 LVLs ap2 6.2 cm ESV(MOD-sp2) 36.7 ml ESV(sp2-el) 37.7 ml EF(MOD-sp2) 58.6 % EF(sp2-el) 59.0 % LVLd %diff -5.27 % EDV(MOD-bp) 91.1 ml LVLs %diff -20.29 % ESV(MOD-bp) 41.2 ml EF(MOD-bp) 54.8 % SV(MOD-sp4) 53.9 ml SI(MOD-sp4) 22.5 ml/m\S\2 SV(MOD-sp2) 51.9 ml SI(MOD-sp2) 21.6 ml/m\S\2 SV(MOD-bp) 49.9 ml SI(MOD-bp) 20.8 ml/m\S\2 SV(sp4-el) 56.7 ml SI(sp4-el) 23.7 ml/m\S\2 SV(sp2-el) 54.2 ml SI(sp2-el) 22.6 ml/m\S\2 Doppler Measurements and Calculations MV E max avery 75.2 cm/sec MV A max avery 39.3 cm/sec MV E/A 1.9 MV dec time 0.27 sec Ao V2 max 110.3 cm/sec Ao max PG 4.9 mmHg Ao max PG (full) 1.6 mmHg FENG(V,A) 2.5 cm\S\2 FENG(V,D) 2.5 cm\S\2 LV V1 max PG 3.3 mmHg LV V1 max 90.7 cm/sec PA V2 max 84.2 cm/sec PA max PG 2.8 mmHg PA acc slope 305.0 cm/sec\S\2 PA acc time 0.15 sec PI max avery 180.5 cm/sec PI max PG 13.0 mmHg PI dec slope 224.9 cm/sec\S\2 PI P1/2t 235.1 msec TR max avery 206.8 cm/sec PA pr(Accel) 12.5 mmHg
--- NOTE | 2017-06-10 23:28 | CARDIOLOGY CONSULTATION ---
DATE OF CONSULTATION: 06/10/2017 CONSULTATION REQUESTED BY: Dr. Cartwright and Dr. Timmons. REASON FOR CONSULTATION: Chest pain. HISTORY OF PRESENT ILLNESS: Mr. Pinto is a 32-year-old man with no real significant past medical history, who presented to the Emergency Department yesterday in the setting of chest pain, diaphoresis and shortness of breath. The patient stated that he has had pain. The patient stated that he had generally felt unwell since waking up in the morning at approximately 10:00. Since that time, the pain had been intermittent but became increasingly worse with associated diaphoresis and radiation to his left arm later this afternoon while he was at work at [employer]. His college eventually convinced him that he needed additional medical attention and was brought by EMS to the [facility] ED. Interventional cardiology was called prior to the patient's arrival due to concern for EKG changes and chest pain with associated diaphoresis. On presentation, the patient was still actively having chest pain, approximately 7/10. The patient describes the pain as pleuritic in nature and was worsened with palpation. His initial EKG showed occasional PVCs and subtle anterior ST changes, but no significant depressions or elevations were noted on EKG. His [id number] troponin was negative. His [id number] D-dimer was also negative. As the patient had been having pain for the better part of 6 hours with negative troponin, likelihood of ACS was thought relatively low and the patient was thought safe to defer urgent cardiac catheterization and admission to telemetry recommended. PAST MEDICAL HISTORY: Denies prior cardiac history, hypertension, dyslipidemia, diabetes or prior stroke. No known kidney problems. SOCIAL HISTORY: Works at [employer]. He is a lifetime never smoker, occasional alcohol, no illicit drugs. ALLERGIES: No allergies. FAMILY HISTORY: Has had cardiac issues in his extended family but nothing in his immediate family. REVIEW OF SYSTEMS: Ten-point review of systems completed and otherwise negative unless stated in HPI. PHYSICAL EXAMINATION: VITAL SIGNS: Temperature 36.5, pulse 79, blood pressure 115/73, he is satting 94% on room air. GENERAL: The patient appeared uncomfortable this morning but in no acute distress. HEENT: Sclerae anicteric. Oropharynx is clear. LUNGS: Clear to auscultation bilaterally. CARDIAC: Regular rate and rhythm with no appreciable murmurs, rubs or gallops. ABDOMEN: Soft, nontender, nondistended with positive bowel sounds. CHEST: His chest wall is tender to palpation. EXTREMITIES: Warm with no significant lower extremity edema. He has intact pulses. DATA: White blood cell count was 6.5, hemoglobin 13.2. Sodium 140, potassium 4.0, BUN of 15, creatinine 0.9. Troponins were negative x3. Imaging including chest x-ray, abdominal pelvis CT and CT of his chest were largely unremarkable including no evidence of dissection or significant abdominal pathology. EKG this morning showed normal sinus rhythm with nonspecific T-wave changes. Overnight, the patient had some sinus bradycardia down into the low 30s but he was asymptomatic. IMPRESSION AND PLAN: 1. Chest pain. 2. Abnormal EKG, occasional premature ventricular contractions. 3. Sinus bradycardia. Mr. Pinto presented with more than 6 hours of chest pain with associated diaphoresis and shortness of breath. His initial EKG had subtle changes but [id number] troponin was negative. He has continued to have chest pain overnight but cardiac enzymes have remained negative. Suspicion for ACS at this point is relatively low. However, in the setting of the patient's symptoms and initial EKG abnormalities, feel that further risk stratification is warranted and we will plan to obtain an exercise stress echocardiogram. Assuming this testing is unremarkable, the patient could be discharged to home with followup. Question whether or not may have some pericarditis in the setting of recent viral illness or musculoskeletal pain. We will follow up the patient post stress echocardiogram. JAE
== END 2017-06-10 13:59 | disposition home or self-care (01) ==
LOC: EDBD 16:53 → C.EDB 16:54 → C.2T 20:41 → ENRESERV 21:05
PROVIDERS: ADMIT Internal Medicine; ATTEND Hospitalist
DX: R07.89 Other chest pain (principal); R94.31 Abnormal electrocardiogram [ECG] [EKG]; R00.1 Bradycardia, unspecified; Z82.49 Family history of ischemic heart disease and other diseases of the circulatory system